=== PATIENT | male | born 2005 | race Caucasian/White ===

== ENCOUNTER 2024-08-13 23:32 | Emergency (ER) | payer SELFPAY ==
[2024-08-14] MEDS ORDERED: Ketorolac Tromethamine 30 MG (1 mL) VIAL ONE (00:44)
[2024-08-14] MEDS ORDERED: Cyclobenzaprine 10 MG TAB ONE (00:54)
[2024-08-14] MEDS ORDERED: Morphine 4 MG/ML VIAL ONE (02:15)
== END 2024-08-14 02:40 | disposition home or self-care (01) ==
LOC: ERS 23:32
DX: S32.018A Other fracture of first lumbar vertebra, initial encounter for closed fracture (principal); S32.048A Other fracture of fourth lumbar vertebra, initial encounter for closed fracture; S32.028A Other fracture of second lumbar vertebra, initial encounter for closed fracture; S32.038A Other fracture of third lumbar vertebra, initial encounter for closed fracture; Y30.XXXA Falling, jumping or pushed from a high place, undetermined intent, initial encounter
CPT/HCPCS: 72131; 96372; J1885; J2272

== ENCOUNTER 2024-09-21 11:05 | Outpatient (CLI) | payer OTHER | END 2024-09-21 11:06 | disposition home or self-care (01) | LOC: SCSRAD 11:05 | PROVIDERS: ATTEND Student in an Organized Health Care Education/Training Program | DX: S32.029D Unspecified fracture of second lumbar vertebra, subsequent encounter for fracture with routine healing (principal); S32.039D Unspecified fracture of third lumbar vertebra, subsequent encounter for fracture with routine healing; S32.049D Unspecified fracture of fourth lumbar vertebra, subsequent encounter for fracture with routine healing | CPT/HCPCS: 72100 ==